=== PATIENT | male | born 1975 | race African-American/Black ===

== ENCOUNTER 2025-05-23 15:20 | Emergency (ER) | payer MEDICAID ==
[~2025-05-23] VITALS: Ht 182.9 cm; Wt 84.0 kg
[2025-05-23 15:23] VITALS: O2SAT 99
[2025-05-23 19:01] VITALS: BP 120/71; PULSE 73; RESP 17; TEMP 36.7; O2SAT 99
== END 2025-05-23 19:02 | disposition home or self-care (01) ==
LOC: EDSEX 15:20 → ER 15:20
DX: S09.90XA Unspecified injury of head, initial encounter (principal); W01.10XA Fall on same level from slipping, tripping and stumbling with subsequent striking against unspecified object, initial encounter; Y93.89 Activity, other specified; Y92.89 Other specified places as the place of occurrence of the external cause; Y99.8 Other external cause status
CPT/HCPCS: 70486; 99284

== ENCOUNTER 2025-05-25 20:17 | Emergency (ER) | payer MEDICAID, OTHER ==
[~2025-05-25] VITALS: Ht 188 cm; Wt 104.0 kg
[2025-05-25 20:22] VITALS: BP 117/86; PULSE 78; RESP 18; TEMP 98.1; O2SAT 99
== END 2025-05-25 20:39 | disposition home or self-care (01) ==
LOC: ER 20:17
DX: Z00.00 Encounter for general adult medical examination without abnormal findings (principal); Z87.820 Personal history of traumatic brain injury
CPT/HCPCS: 99283